=== PATIENT | female | born 1980 | race American Indian/Alaskan Native ===

== ENCOUNTER 2020-08-18 12:38 | Outpatient (CLI) | payer MEDICAID ==
[2020-08-18] MEDS ORDERED: LACTATED RINGERS 1,000 ML IV ONE (12:50)
[2020-08-18] MEDS ORDERED: LACTATED RINGERS 1,000 ML IV SCH (13:00)
[2020-08-18 13:25] VITALS: BP 124/67
[2020-08-18] MEDS ORDERED: LACTATED RINGERS 500 ML IV ONE (13:47)
[2020-08-18 15:12] LABS: Bacteria,Urine 1+ /HPF (Negative); Bilirubin,Urine NEG (Negative); Blood,Urine NEG (Negative); Color,Urine Yellow (Yellow); Mucus,Urine FEW /HPF; Protein,Urine <15 mg/dL mg/dL (Negative); Urobilinogen,Urine < 2.0 mg/dL (<2.0)
--- NOTE | 2020-08-19 06:44 | Ultrasound Report ---
BIOPHYSICAL PROFILE HISTORY: Decreased movement. FINDINGS: Biophysical profile is normal at 8/8. heart tones are 149 bpm. Signer Name: Nicolas Velarde MD Signed: 08/19/2020 6:40 AM Workstation Name: [id number]
== END 2020-08-18 14:55 | disposition home or self-care (01) ==
LOC: TRG 12:38 → APU 12:39 → TRG 14:55
PROVIDERS: ATTEND Obstetrics & Gynecology
DX: O09.893 Supervision of other high risk pregnancies, third trimester (principal); Z3A.36 36 weeks gestation of pregnancy
CPT/HCPCS: 59025; 76819; 81001

== ENCOUNTER 2020-09-01 09:39 | Inpatient (IN) | payer MEDICAID ==
--- NOTE | 2020-08-25 16:40 | History and Physical Report ---
History of Present Illness Chief complaint: repeat c/s History of present illness: 40 yo at 38w3d c/b Class III Obesity, prior c/s x 2, pregestational diabetes (metformin 1000mg BID), hx PIH (on aspirin), sickle cell trait, AMA, Vit D deficiency, SS trait presenting for repeat c/s. Denies labor complaint or PIH symptoms. +FM. Past History Past Medical History: hypertension, diabetes, other (Class III Obesity) Past Surgical History: section (x2), other (bladder surgery) Family/Genetic History: diabetes - Obstetrical History : 5 Para: 2 Hx # Term Pregnancies: 2 Spontaneous Abortions: 2 Number of Living Children: 2 Medications and Allergies Allergies Allergy/AdvReac Type Severity Reaction Status Date / Time No Known Allergies Allergy Verified 08/18/20 12:45 Review of Systems All systems: negative (expect HPI) - Physical Exam Cardiovascular: Regular rate Lungs: Positive: Clear to auscultation Abdomen: Positive: normal appearance, normal bowel sounds - Obstetrical FHR: category 1 Uterine Contraction Monitor Mode: External Uterine Contraction Pattern: Absent Results All other labs normal. Assessment and Plan - Patient Problems (1) H/O: Status: Acute Plan to address problem: --To OR for repeat section --Consented in the chart --Questions solicitied and answered --GBS neg (2) Diabetes in undelivered Status: Acute Qualifiers: Gestational diabetes mellitus control: oral hypoglycemic-controlled Plan to address problem: --Continue metformin 1000mg BID (3) Elevated blood pressure reading without diagnosis of hypertension Status: Acute Plan to address problem: --Continue to monitor for s/sx of preeclampsia. BPs currently stable. --Aspirin held for surgery
[2020-09-01] MEDS ORDERED: HYDROmorphone 1 MG/1 ML INJ IV PRN (10:09)
[2020-09-01] MEDS ORDERED: ONDANSETRON 4 MG/2 ML INJ IV PRN ×2 (10:09→13:20)
[2020-09-01] MEDS ORDERED: NALOXONE 0.4 MG/1 ML INJ IV PRN ×2 (10:09→13:20)
[2020-09-01] MEDS ORDERED: diphenhydrAMINE 50 MG/ML VIAL IV PRN (10:09)
[2020-09-01] MEDS ORDERED: PROMETHAZINE 25 MG TAB PO PRN (10:09)
[2020-09-01] MEDS ORDERED: PROMETHAZINE 25 MG RECT SUPP PR PRN ×2 (10:09→13:20)
[2020-09-01] MEDS ORDERED: NalbUPHINE 10 MG/1 ML INJ IV PRN (10:09)
[2020-09-01] MEDS ORDERED: dexAMETHasone 20 MG/5 ML VIAL ONE (10:12)
[2020-09-01] MEDS ORDERED: KETOROLAC 30 MG/1 ML INJ ONE (10:12)
[2020-09-01] MEDS ORDERED: BUPIVACAINE/PF (0.5%) 5 MG/1 ML 30 ML VIAL INFILTRATI ONE (10:12)
--- NOTE | 2020-09-01 10:36 | Anesthesia Day of Surgery ---
Anesthesia Day of Surgery - Day of Surgery Patient Examined: Yes Patient H&P Reviewed: Yes Patient is NPO: Yes Beta Blockers: No Cardiac Clearance: No Pulmonary Clearance: No Jean Pierre's Test: N/A
--- NOTE | 2020-09-01 10:37 | Anesthesia Consultation ---
Anesthesia Consult and Med Hx Date of service: 09/01/20 - Airway Anesthetic Teeth Evaluation: Good ROM Head & Neck: Adequate Mental/Hyoid Distance: Adequate Mallampati Class: Class III Intubation Access Assessment: Possibly Difficult - Pulmonary Exam CTA: Yes - Cardiac Exam Cardiac Exam: RRR - Pre-Operative Health Status ASA Pre-Surgery Classification: ASA2 Proposed Anesthetic Plan: Spinal - Pulmonary Hx Smoking: No Hx Asthma: Yes (last attack 1 yr ago) COPD: No Hx Pneumonia: No Hx Sleep Apnea: No - Cardiovascular System Hx Hypertension: Yes Hx Heart Attack/AMI: No Hx Angina: No - Central Nervous System Hx Seizures: No Hx Psychiatric Problems: No - Gastrointestinal Hx Gastroesophageal Reflux Disease: No - Endocrine Hx Renal Disease: No Hx End Stage Renal Disease: No Hx Insulin Dependent Diabetes: No Hx Non-Insulin Dependent Diabetes: No Hx Hypothyroidism: No Hx Hyperthyroidism: No - Hematic Hx Anemia: Yes Hx Sickle Cell Disease: Yes (reait) - Other Systems Hx Alcohol Use: No Hx Obesity: Yes
[2020-09-01 10:44] LABS: Basophils % (Auto) 0.5 % (0.0-1.8); Eosinophils # (Auto) 0.2 K/mm3 (0.0-0.4); Hematocrit 30.2 % (30.3-42.9); Hemoglobin 10.1 gm/dl (10.1-14.3); Lymphocytes # (Auto) 1.8 K/mm3 (1.2-5.4); Lymphocytes % (Auto) 22.8 % (13.4-35.0); Mean Corpuscular HGB Conc 34 % (30-34); Mean Corpuscular Volume 80 fl (79-97); Monocytes # (Auto) 0.5 K/mm3 (0.0-0.8); Platelet Count 235 K/mm3 (140-440); Red Blood Count 3.79 M/mm3 (3.65-5.03); Red Cell Distribution Width 16.3 % (13.2-15.2)
[2020-09-01] MEDS ORDERED: CARBOPROST TROMETHAMINE 250 MCG/1 ML INJ IM ONE (10:50)
[2020-09-01] MEDS ORDERED: miSOPROStol 200 MCG TAB ONE (10:50)
[2020-09-01] MEDS ORDERED: METHYLERGONOVINE MALEATE 0.2 MG/ML VIAL IM ONE (10:50)
[2020-09-01] MEDS ORDERED: FAMOTIDINE 20 MG/2 ML INJ IV ONE (11:00)
[2020-09-01] MEDS ORDERED: OXYTOCIN DRIP 30 UNITS/500 ML BAG IV SCH ×2 (11:00→14:00)
[2020-09-01] MEDS ORDERED: LACTATED RINGERS 1,000 ML IV SCH (11:00)
[2020-09-01] MEDS ORDERED: BICITRA ORAL LIQD 30ML PO ONE (11:00)
[2020-09-01] MEDS ORDERED: ceFAZolin/Water 2 GM/20 ML 2 GM/20 ML SYRINGE IV NR (11:00)
[2020-09-01] MEDS ORDERED: METOCLOPRAMIDE 10 MG/2 ML INJ IV ONE (11:00)
[2020-09-01] MEDS ORDERED: ePHEDrine SULFATE 50 MG/1 ML INJ ONE (11:58)
[2020-09-01] MEDS ORDERED: SODIUM CHLORIDE 0.9% 100 ML ONE (11:59)
[2020-09-01] MEDS ORDERED: LACTATED RINGERS 1,000 ML ONE (11:59)
[2020-09-01] MEDS ORDERED: WATER FOR IRRIG STERILE 1,500 ML BOTTLE IR ONE (12:08)
[2020-09-01] MEDS ORDERED: SODIUM CHLORIDE 0.9% IRR 1,500 ML BOTTLE IR ONE (12:08)
[2020-09-01] MEDS ORDERED: ceFAZolin/STERILE WATER 2 GM/20 ML SYRINGE IV ONE (12:08)
[2020-09-01] MEDS ORDERED: SIMETHICONE 80 MG CHEW TAB PO PRN (13:20)
[2020-09-01] MEDS ORDERED: ACETAMINOPHEN 325 MG TAB PO PRN (13:20)
[2020-09-01] MEDS ORDERED: MORPHINE 4 MG/1 ML INJ IV PRN (13:20)
[2020-09-01] MEDS ORDERED: SENNOSIDES 8.6 MG TAB PO PRN (13:20)
[2020-09-01] MEDS ORDERED: LANOLIN/ZINC/DIMETHICONE (LANSINOH) 7 GM TP PRN (13:20)
[2020-09-01] MEDS ORDERED: MAGNESIUM HYDROXIDE (MOM) ORAL LIQD UDC PO PRN (13:20)
[2020-09-01] MEDS ORDERED: IBUPROFEN 800 MG TAB PO PRN (13:20)
[2020-09-01] MEDS ORDERED: WITCH HAZEL/ GLYCERIN PAD TP PRN (13:20)
[2020-09-01] MEDS ORDERED: HYDROCORTISONE 25 MG RECTAL SUPP PR PRN (13:20)
--- NOTE | 2020-09-01 13:25 | Procedure Note ---
OB Delivery Note - Delivery Date of Delivery: 09/01/20 Surgeon: MARY SIMMS JR Estimated blood loss: 500cc - Section Preop diagnosis: repeat Postop diagnosis: same section procedure: section, repeat low transverse Disposition: PACU Complications: none Narrative: Indication: 40 yo at 38w3d c/b Class III Obesity, prior c/s x 2, pregestational diabetes (metformin 500mg AM/1500mg PM), hx PIH (on aspirin), sickle cell trait, AMA, Vit D deficiency presenting for repeat c/s. Findings: Enlarged fibroid uterus, with 6 cm left lateral fibroid noted (not removed). Normal tubes and ovaries. Clear fluid. No nuchal cord. Delivery of male infant at 1229 Weight 3530g Height 19 in APGARS 8/9 EBL 500cc IVF 1800cc UOP 100cc Procedure: Patient was taken to the operating room prepped and draped in the usual sterile fashion. Pfannenstiel skin incision was made and carried down to the underlying fascia. Fascia was incised and the incision was distended bilaterally. Rectus fascia was dissected off the rectus muscle superiorly and inferiorly. Peritoneum was identified and entered. Peritoneal incision extended superiorly and inferiorly. The bladder was visualized. The bladder blade was placed. Uterine hysterotomy incision was made and extended bilaterally. The baby was delivered in the typical vertex fashion. Baby was bulb suction at delivery. The cord was cut and clamped and handed off to the team. The placenta was delivered with manual extraction given umbilical cord avulsion at the placental origin. The uterus was exteriorized and cleared of all clots and debris. Uterine incision was closed with a 0 Vicryl in a running locked fashion. Good hemostasis was noted with 2 [id number] sutures applied to the uterine incision. Hemoblast was applied to the uterine incisional base to provide hemostasis. The urine was noted to be clear. Uterus, tubes, and ovaries were returned to the abdominal cavity. Bilateral gutters were cleared and the abdomen and pelvis were irrigated. Good hemostasis noted. The rectus muscle was reapproximated with 2-0 Vicryl. Attention was directed towards the rectus fascia which was reapproximated with 0 PDS in a running fashion. The subcutaneous tissue was irrigated and reapproximated with 2-0 Vicryl in a running fashion. Skin was closed with a 4-0 Vicryl in a subcuticular fashion. The procedure was completed and the patient tolerated the procedure well. All instruments and lap counts were correct x2. - A at 1 minute: 8 at 5 minutes: 9 Gender: Male
--- NOTE | 2020-09-01 13:53 | Progress Note ---
Spinal Anesthesia Block - Spinal Anesthesia Block Start Time: 11:40 Stop Time: 11:50 Performed by:: SUE MCBRIDE Procedure: Spinal anesthesia block is being performed for [C/S]. H&P, labs have been reviewed. Patient's questions and concerns have been answered. Informed consent has been performed. Timeout has was performed. Patient in sitting position on side of bed. Sterile prep and drape was performed. 3 mL 1% lidocaine skin wheal at L [3]-L [4]. Needle introducer advanced. 25-gauge spinal needle advanced, [+] CSF [-] blood. [Marcaine 10mg and Precedex 4mcg] Spinal dose was given. All needles removed. Patient tolerated procedure well.
--- NOTE | 2020-09-01 13:54 | Progress Note ---
Regional Anesthesia Block - Regional Anesthesia Block Start Time: 13:30 Stop Time: 13:37 Performed By:: SUE MCBRIDE Procedure: Patient consented for TAP block for post surgical pain management. Patient identified, monitors placed, and time out performed. Mid axillary TAP identified bilaterally via ultrasound. Skin prepped bilaterally with [chlorhexidine] and [20g stimuplex] needle advanced to the TAP. 35ml [Marcaine 0.215% with 25mcg Precedex and Decadron 5mg] injected under ultrasound guidance on the [left] side. 35ml [Marcaine 0.215% with 25mcg Precedex and Decadron 5mg] injected under ultrasound guidance on the [right] side.
[2020-09-01] MEDS: D5W/LACTATED RINGERS 1,000 ML IV SCH (16:11)
[2020-09-01] MEDS: KETOROLAC 30 MG/1 ML INJ IV SCH ×2 (16:12→22:21)
[2020-09-01] MEDS ORDERED: metFORMIN 500 MG TAB PO SCH (18:00)
[2020-09-01] MEDS ORDERED: DEXTROSE 50% IN WATER (25GM) 50 ML SYRINGE IV PRN (18:29)
--- NOTE | 2020-09-01 18:44 | Event Note ---
Date: 09/01/20 RN called for elevated CBG >200, reported 275. CBG on admission 92. Possibly 2/2 cranberry juice given. Confirmed diabetic diet. Given start sliding scale insulin with AC/HS CBGs, 10U regular now. Continue to monitor. Continue metformin as scheduled.
[2020-09-01] MEDS ORDERED: INSULIN REGULAR, HUMAN 100 UNITS/1 ML SUB-Q SCH (22:00)
[2020-09-02] MEDS: D5W/LACTATED RINGERS 1,000 ML IV SCH
[2020-09-02 01:50] LABS: Hematocrit 29.7 % (30.3-42.9); Hemoglobin 9.9 gm/dl (10.1-14.3)
[2020-09-02] MEDS: KETOROLAC 30 MG/1 ML INJ IV SCH (03:36)
[2020-09-02] MEDS ORDERED: metFORMIN 500 MG TAB PO SCH ×2 (08:00→22:00)
[2020-09-02] MEDS ORDERED: metFORMIN 500 MG TAB ONE (08:18)
[2020-09-02] MEDS: ENOXAPARIN 40 MG/0.4 ML INJ SUB-Q SCH (10:26)
[2020-09-02] MEDS: oxyCODONE /ACETAMINOPHEN 5-325MG TAB PO PRN ×3 (10:28→22:00)
[2020-09-02] MEDS: metFORMIN 500 MG TAB PO SCH ×2 (10:30→17:41)
--- NOTE | 2020-09-02 10:47 | Progress Note ---
Assessment and Plan POD # 1 A: S/P Repeat LTCS Asymptomatic anemia obesity; GDM p: Continue routine pp care MD to manage diabetic status Fe prescribed Encourage ambulation D/C home in 24-48 hrs if stable Subjective - Subjective Date of service: 09/02/20 Principal diagnosis: s/p repeat LTCS Patient reports: appetite normal, voiding normally, pain well controlled, ambulating normally [place]: doing well, bottle feeding Objective - Vital Signs Latest vital signs: Vital Signs Temp Pulse Resp BP BP Pulse Ox 09/02/20 09:18 98 F 89 18 143/83 100 09/02/20 05:50 129/64 09/02/20 04:40 97.9 F 88 20 137/73 100 09/02/20 04:06 18 09/02/20 03:36 18 09/02/20 00:10 97.7 F 99 H 20 136/82 100 09/01/20 22:51 18 09/01/20 22:21 18 09/01/20 20:25 97.9 F 93 H 20 146/80 99 09/01/20 16:12 16 09/01/20 15:40 97.8 F 84 16 126/64 100 09/01/20 14:04 75 16 127/55 100 09/01/20 13:49 81 16 126/60 100 09/01/20 13:34 85 16 109/48 100 09/01/20 13:29 77 16 127/58 100 09/01/20 13:24 97.7 F 78 16 107/30 100 09/01/20 11:31 91 H 100 09/01/20 11:26 105 H 100 09/01/20 11:21 88 98 09/01/20 11:16 115 H 100 09/01/20 11:11 86 100 09/01/20 11:06 81 98 09/01/20 11:02 82 132/74 09/01/20 11:01 85 100 09/01/20 10:56 95 H 100 09/01/20 10:51 81 98 Intake and Output 09/01/20 09/02/20 09/02/20 22:59 06:59 14:59 Intake Total 640 1217.083 Output Total 2500 900 Balance -1860 317.083 Intake: IV 400 977.083 D5lr 1,000 ml @ 125 mls/ 977.083 hr IV [facility] Rx#: [id number] Oral 240 Intake, Free Water 240 Output: Urine 2500 900 Indwelling Catheter 2200 Void 900 Other: Total, Intake Amount 240 Total, Output Amount 1500 450 # Voids Void 1 Estimated Blood Loss 500 - Exam Breasts: Present: normal Abdomen: Present: soft, normal bowel sounds Vulva: both: normal Uterus: Present: normal, firm, fundal height below umbilicus Extremities: Present: normal Incision: Present: normal, dry, intact, dressed - Labs Labs: Abnormal lab results 09/01/20 09/02/20 09/02/20 Range/Units 18:13 00:09 00:52 Hgb 9.9 L (10.1-14.3) gm/dl Hct 29.7 L (30.3-42.9) % POC Glucose 275 H 234 H (70-105) mg/dL 09/02/20 09/02/20 Range/Units 01:56 07:52 Hgb (10.1-14.3) gm/dl Hct (30.3-42.9) % POC Glucose 234 H 121 H (70-105) mg/dL
--- NOTE | 2020-09-02 12:07 | Post Anesthesia Evaluation ---
- Post Anesthesia Evaluation Patient Participated: Yes Airway Patent: Yes Stable Respiratory Function: Yes Nausea/Vomiting: No Temp > 96.8F: Yes Pain Manageable: Yes Adequeate Hydration: Yes Anesthesia Complications: No Block Receding Appropriately: Yes Patient on Ventilator: No
[2020-09-02] MEDS: FERROUS SULFATE 325 MG TAB PO SCH ×2 (16:30→22:00)
[2020-09-03] MEDS: oxyCODONE /ACETAMINOPHEN 5-325MG TAB PO PRN ×2 (05:31→11:35)
[2020-09-03] MEDS: metFORMIN 500 MG TAB PO SCH (08:00)
--- NOTE | 2020-09-03 09:03 | Progress Note ---
Subjective - Subjective Date of service: 09/03/20 Principal diagnosis: s/p repeat LTCS Interval history: POD#2 Doing well no complaints ambulatory, tolerating general diet, no BM or flatus POstop Hb 02/19 Blood glucose <120 over last 24 hours, stable on metformin Continue routine PP care d/c to home tomorrow Federico Blunt MD Patient reports: appetite normal, voiding normally, pain well controlled, ambulating normally [place]: doing well Objective - Vital Signs Latest vital signs: Vital Signs Temp Pulse Resp BP BP Pulse Ox 09/03/20 06:31 18 09/03/20 05:31 20 09/03/20 00:30 97.8 F 92 H 20 149/85 100 09/02/20 23:00 18 09/02/20 22:00 18 09/02/20 16:30 97.4 F L 88 18 134/74 100 09/02/20 13:13 98.5 F 87 18 132/73 94 09/02/20 09:18 98 F 89 18 143/83 100 Intake and Output 09/02/20 09/03/20 09/03/20 23:59 07:59 15:59 Intake Total 240 480 Balance 240 480 Intake: Oral 240 480 Other: Total, Intake Amount 240 240 # Voids Void 1 1 - Exam Breasts: Present: normal Cardiovascular: Present: Regular rate Abdomen: Present: normal appearance, normal bowel sounds Uterus: Present: normal, firm, fundal height below umbilicus Extremities: Present: normal Deep Tendon Reflex Grade: Normal but brisk +3 Incision: Present: normal, intact, dressed - Labs Labs: Abnormal lab results 09/02/20 09/02/20 Range/Units 12:08 17:39 POC Glucose 115 H 107 H (70-105) mg/dL
[2020-09-03] MEDS: ENOXAPARIN 40 MG/0.4 ML INJ SUB-Q SCH (11:34)
[2020-09-03] MEDS: FERROUS SULFATE 325 MG TAB PO SCH (11:38)
[2020-09-03 14:49] VITALS: BP 141/83
== END 2020-09-03 19:00 | disposition home or self-care (01) | DRG 766 ==
LOC: APU 09:39 → OB 15:33
PROVIDERS: ADMIT Obstetrics & Gynecology; ATTEND Obstetrics & Gynecology
PROC: 10D00Z1 Extraction of Products of Conception, Low, Open Approach (ICD-10-PCS; principal; 2020-09-01)
PROC: 3E0T3BZ Introduction of Anesthetic Agent into Peripheral Nerves and Plexi, Percutaneous Approach (ICD-10-PCS; 2020-09-01)
DX: O34.211 Maternal care for low transverse scar from previous cesarean delivery (principal); Z37.0 Single live birth; O24.429 Gestational diabetes mellitus in childbirth, unspecified control; O99.214 Obesity complicating childbirth; E66.9 Obesity, unspecified; D64.9 Anemia, unspecified; Z20.822 Contact with and (suspected) exposure to COVID-19; Z3A.38 38 weeks gestation of pregnancy
CPT/HCPCS: 36415; 82962; 85014; 85018; 85025; 86850; 86900; 86901; G0378; A6250; J0690; J1100; J1650; J1885; J2765; J3490; J7120; J7121; U0003